=== PATIENT | female | born 1960 | race Hispanic/Latino ===

== ENCOUNTER → 2019-03-27 | Outpatient (CLI) | payer BC ==
[~2019-03-27] MED LIST: REGADENOSON 0.4 MG/5 ML PF SYG IVP SCH
== END | disposition home or self-care (01) ==
LOC: RAH 08:13
PROVIDERS: ATTEND Internal Medicine Cardiovascular Disease
DX: R07.89 Other chest pain (principal)
CPT/HCPCS: 78452; 93017; 96374; A9500 ×2; J2785